=== PATIENT | female | born 1965 | race African-American/Black ===

== ENCOUNTER 2017-07-28 17:48 | Inpatient (IN) | payer MEDICARE, MEDICAID ==
[~2017-07-28] VITALS: Ht 166.9 cm; Wt 110.5 kg
[2017-07-28] MEDS ORDERED: MEPERIDINE HCL (50 MG/ML) 1 ML VIAL IV ONE (19:00)
[2017-07-28] MEDS ORDERED: ONDANSETRON HCL 4 MG/2 ML VIAL IV ONE (20:45)
[2017-07-28 22:23] LABS: Hematocrit 39.2 % (36.0-46.0); Hemoglobin 13.3 g/dL (12.2-16.2); Mean Corpuscular Hemoglobin 31.9 pg (28.0-32.0); Mean Corpuscular Volume 93.9 fL (80.0-100.0); Platelet Count (auto) 268 10^3/uL (140-450); Red Blood Cells 4.17 10^6/uL (4.0-5.20); White Blood Cell 12.5 10^3/uL (4.4-10.8)
[2017-07-28 22:27] LABS: Band Neutrophils % (manual) 0; Basophils % (manual) 0 (0.0-2.0); Blast Cells 0; Eosinophils % (manual) 0 (0-7); Metamyelocytes % 0; Myelocytes % 0; Promyelocytes % 0; Reactive Lymphocytes 0
[2017-07-28 22:34] LABS: Albumin 3.6 g/dL (3.4-5.0); Anion Gap 8 (5-15); Aspartate Aminotransferase 58 U/L (15-37); BUN/Creatinine Ratio 9.3; Blood Urea Nitrogen 10 mg/dL (7-18); Calcium 8.1 mg/dL (8.5-10.1); Carbon Dioxide 22 mmol/L (21-32); Chloride 113 mmol/L (98-107); GFR African American 69 mL/min; GFR Non-African American 57 mL/min; Glucose 98 mg/dL (74-106); Potassium 4.6 mmol/L (3.5-5.1); Sodium 143 mmol/L (136-145)
[2017-07-28 22:45] LABS: Alanine Aminotransferase 25 U/L (13-56); Alkaline Phosphatase 84 U/L (45-117); Bilirubin, Total 0.4 mg/dL (0.2-1.0); Total Protein 7.5 g/dL (6.4-8.2)
[2017-07-29] VITALS (7 sets, daily range): BP systolic 111–163; BP diastolic 70–99
[2017-07-29 00:20] LABS: Lymphocytes % (manual) 25 (10.0-50.0); Monocytes % (manual) 6 (0-12)
[2017-07-29] MEDS ORDERED: HYDROcodone-ACET 5/325MG TAB PO PRN (00:30)
[2017-07-29] MEDS ORDERED: ACETAMINOPHEN 325 MG TAB PO PRN (00:30)
[2017-07-29] MEDS ORDERED: cloNIDine HCL 0.1 MG TAB PO PRN (00:30)
[2017-07-29] MEDS ORDERED: ONDANSETRON HCL 4 MG/2 ML VIAL IV PRN (00:30)
[2017-07-29] MEDS ORDERED: TEMAZEPAM 15 MG CAP PO PRN (00:30)
[2017-07-29] MEDS: MEPERIDINE HCL (25 MG/ML) 1ML VIAL IV PRN ×2 (01:43→05:34)
[2017-07-29 01:44] LABS: Urine Bacteria NONE SEEN /hpf (None Seen); Urine Blood TRACE /uL (Negative); Urine Mucus FEW (None Seen); Urine Specific Gravity 1.025 (1.001-1.035); Urine WBC 5 /hpf (0 - 5)
[2017-07-29] MEDS ORDERED: MEPERIDINE HCL (50 MG/ML) 1 ML VIAL IV PRN (10:15)
[2017-07-29] MEDS: FAMOTIDINE 20 MG TAB PO SCH ×2 (10:37→21:15)
[2017-07-29] MEDS: ENOXAPARIN SOD 40 MG/0.4 ML SYRINGE SC SCH (10:38)
[2017-07-29] MEDS: OXYCODONE W/ ACETAMINOPHEN 5/325MG TABLET PO PRN ×2 (13:12→21:16)
[2017-07-29 14:16] LABS: INR 0.99 (0.9-1.15); Prothrombin Time 10.6 sec (9.27-12.13)
[2017-07-29] MEDS ORDERED: SUCCINYLCHOLINE CHLORIDE 20 MG/ML 10ML VIAL IV ONE (16:26)
[2017-07-29] MEDS ORDERED: LIDOCAINE 1% (LOCAL ANESTH.) PF 5ml SDV ONE (16:26)
[2017-07-29] MEDS ORDERED: ROCURONIUM 10MG/ML 10ML VIAL IV ONE (16:28)
[2017-07-29] MEDS ORDERED: PROPOFOL 10 MG/ML 20 ML IV ONE (16:28)
[2017-07-29] MEDS ORDERED: MIDAZOLAM HCL 1MG/1ML-2 ML VIAL ONE (16:28)
[2017-07-29] MEDS ORDERED: METOCLOPRAMIDE HCL 5MG/ml INJ 2ml VIAL ONE (16:30)
[2017-07-29] MEDS ORDERED: fentaNYL CITRATE 100 MCG/2 ML VL ONE ×2 (16:42→17:34)
[2017-07-29] MEDS ORDERED: ONDANSETRON HCL 4 MG/2 ML VIAL IV ONE (16:45)
[2017-07-29] MEDS ORDERED: HYDR25TA4 PO (16:52)
[2017-07-29] MEDS ORDERED: HYDR-4683 PO (16:53)
[2017-07-29] MEDS ORDERED: GLYCOPYRROLATE 0.2 MG/ML 1ML VIAL ONE (16:58)
[2017-07-29] MEDS ORDERED: NEOSTIGMINE 1 MG/ML INJ (10mg/10ML VIAL) ONE (16:58)
[2017-07-30 05:00] VITALS: BP 130/81
[2017-07-30 06:08] LABS: Basophils # (auto) 0 uL; Basophils % (auto) 0.4 % (0.0-2.0); Eosinophils # (auto) 0.2 uL; Eosinophils % (auto) 2.1 % (0.0-7.0); Hematocrit 38.2 % (36.0-46.0); Hemoglobin 12.8 g/dL (12.2-16.2); Lymphocytes # (auto) 3.5 uL; Lymphocytes % (auto) 35.7 % (10.0-50.0); Mean Corpuscular Hgb Conc. 33.6 g/dL (32.0-36.0); Mean Corpuscular Volume 95.3 fL (80.0-100.0); Monocytes # (auto) 0.9 uL; Monocytes % (auto) 9.2 % (0.0-12.0); Neutrophils # (auto) 5.1 uL; Neutrophils % (auto) 52.6 % (37.0-80.0); Nucleated Red Blood Cells % 0.1 %; Platelet Count (auto) 226 10^3/uL (140-450); Red Blood Cells 4.01 10^6/uL (4.0-5.20); Red Cell Distribution Width 13.9 % (11.8-14.3); White Blood Cell 9.8 10^3/uL (4.4-10.8)
[2017-07-30] MEDS: OXYCODONE W/ ACETAMINOPHEN 5/325MG TABLET PO PRN (06:08)
[2017-07-30 06:33] LABS: Albumin 3.1 g/dL (3.4-5.0); BUN/Creatinine Ratio 9.2; Bilirubin, Total 0.4 mg/dL (0.2-1.0); Calcium 7.9 mg/dL (8.5-10.1); Potassium 3.6 mmol/L (3.5-5.1); Total Protein 6.4 g/dL (6.4-8.2)
[2017-07-30 08:00] VITALS: BP 131/66
[2017-07-30 09:00] VITALS: BP 131/66
[2017-07-30] MEDS ORDERED: fentaNYL CITRATE 100 MCG/2 ML VL IV ONE (10:00)
[2017-07-30] MEDS: FAMOTIDINE 20 MG TAB PO SCH (10:08)
[2017-07-30] MEDS: ENOXAPARIN SOD 40 MG/0.4 ML SYRINGE SC SCH (10:08)
[2017-07-30 12:02] VITALS: BP 131/66
[2017-07-30 13:00] VITALS: BP 119/80
[2017-07-30 17:00] VITALS: BP 142/77
== END 2017-07-30 18:00 | disposition home or self-care (01) | DRG 560 ==
LOC: ER 17:48 → OVERFLOW 17:49 → WEST WING 07-29 02:10
PROVIDERS: ADMIT Nurse Practitioner; ATTEND Internal Medicine
PROC: 0SSBXZZ Reposition Left Hip Joint, External Approach (ICD-10-PCS; principal; 2017-07-29 16:36)
DX: T84.021A Dislocation of internal left hip prosthesis, initial encounter (principal); Z68.41 Body mass index [BMI] 40.0-44.9, adult; E66.01 Morbid (severe) obesity due to excess calories; I10 Essential (primary) hypertension; J45.909 Unspecified asthma, uncomplicated; W01.0XXA Fall on same level from slipping, tripping and stumbling without subsequent striking against object, initial encounter; K21.9 Gastro-esophageal reflux disease without esophagitis; Y79.2 Prosthetic and other implants, materials and accessory orthopedic devices associated with adverse incidents; Y93.01 Activity, walking, marching and hiking; Z96.643 Presence of artificial hip joint, bilateral; M19.90 Unspecified osteoarthritis, unspecified site; Z82.49 Family history of ischemic heart disease and other diseases of the circulatory system; Z79.899 Other long term (current) drug therapy; Y92.410 Unspecified street and highway as the place of occurrence of the external cause
CPT/HCPCS: 36415; 71045; 73501; 73502; 73562; 76000; 80053; 81001; 84484; 84702; 85007; 85025; 85027; 85610; 93005; 96374; 96375; J0330; J2250; J2405; J2704